=== PATIENT | male | born 1965 | race Caucasian/White ===

== ENCOUNTER 2020-10-16 13:30 | Emergency (ER) | payer MEDICAID ==
[~2020-10-16] VITALS: Ht 182.9 cm; Wt 87.6 kg
[2020-10-16 13:58] VITALS: BP 112/67
[2020-10-16] MEDS ORDERED: MUPI22OI30 TOP (15:21)
[2020-10-16] MEDS ORDERED: PERM60CR19 TP (15:21)
[2020-10-16] MEDS ORDERED: CEPH250T PO (15:21)
== END 2020-10-16 15:25 | disposition home or self-care (01) ==
LOC: ER 13:31
DX: S80.862A Insect bite (nonvenomous), left lower leg, initial encounter (principal); S80.861A Insect bite (nonvenomous), right lower leg, initial encounter; L03.115 Cellulitis of right lower limb; L03.116 Cellulitis of left lower limb; Z79.2 Long term (current) use of antibiotics; Z79.899 Other long term (current) drug therapy; W57.XXXA Bitten or stung by nonvenomous insect and other nonvenomous arthropods, initial encounter; Y93.89 Activity, other specified; Y92.89 Other specified places as the place of occurrence of the external cause; Y99.8 Other external cause status
CPT/HCPCS: 99283